=== PATIENT | female | born 1975 | race Hispanic/Latino ===

== ENCOUNTER 2019-02-24 15:26 | Emergency (ER) | payer BC ==
[~2019-02-24] VITALS: Ht 170.2 cm; Wt 68.0 kg
--- OUTSIDE RECORDS SUMMARY | 2019-02-24 15:29 | XMS REPORT ---
Author Author [facility] Address Unknown Phone Unavailable Care Team Providers Care Novelties Sales Representative Name Role Phone Rochelle Jacobson Unavailable Unavailable Problems This patient has no known problems. Allergies, Adverse Reactions, Alerts This patient has no known allergies or adverse reactions. Medications This patient has no known medications. Encounters Start Date/Time End Date/Time Encounter Type Admission Type Attending [facility] Care Facility Care Department Encounter ID 2019-02-23 15:31:00 2019-02-23 15:31:00 Emergency E [facility] [id number] 2018-10-23 14:34:00 2018-10-23 14:34:00 Outpatient Angel Jacobson [id number] 11:05:00 2017-10-17 11:05:00 Outpatient Angel Jacobson [id number] 10:53:00 2017-10-17 10:53:00 Outpatient Angel Jacobson [id number] 09:44:00 2016-10-13 09:44:00 Outpatient Angel Jacobson [id number]
[2019-02-24] MEDS ORDERED: SODIUM CHLORIDE 0.9% 1000ML 1,000 ML IV STA (15:46)
[2019-02-24] MEDS ORDERED: MORPHINE SULFATE INJ 4 MG/ML INJ 1ML IV STA (15:46)
[2019-02-24] MEDS ORDERED: KETOROLAC TROMETHAMINE 30 MG/ML VIAL IV ONE (16:00)
[2019-02-24] MEDS ORDERED: PIPER-TAZ 3.375 GM 50 ML IV ONE (16:00)
[2019-02-24] MEDS ORDERED: POTASSIUM CHLORIDE 20 MEQ TAB CR PO ONE (17:01)
[2019-02-24] MEDS ORDERED: SODIUM CHLORIDE 0.9% 1000ML 1,000 ML ONE (17:01)
[2019-02-24] MEDS ORDERED: KETOROLAC TROMETHAMINE 30 MG/ML VIAL ONE (17:01)
[2019-02-24] MEDS ORDERED: PIPER-TAZ 3.375 GM 50 ML ONE (17:01)
[2019-02-24] MEDS ORDERED: IOPAMIDOL 370 MG/ML 200 ML INFUS..BTL INJ ONE (17:07)
[2019-02-24] MEDS ORDERED: SODIUM CHLORIDE 0.9% 50ML 50 ML ONE (17:08)
--- NOTE | 2019-02-24 17:51 | Diagnostic Imaging Report ---
EXAM: CT Abdomen and Pelvis WITH intravenous contrast INDICATION: Abdominal pain COMPARISON: None. TECHNIQUE: Abdomen and pelvis were scanned utilizing a multidetector helical scanner from the lung base to the pubic symphysis after administration of IV contrast. Coronal and sagittal reformations were obtained. Routine protocol was performed. Scan was performed during portal venous phase. IV CONTRAST: 100mL of Isovue 370 ORAL CONTRAST: Water RADIATION DOSE: Total DLP: 537.0 mGy*cm Dose modulation, iterative reconstruction, and/or weight based adjustment of the mA/kV was utilized to reduce the radiation dose to as low as reasonably achievable. FINDINGS: LOWER THORAX: Normal. HEPATOBILIARY: No focal hepatic lesions. No biliary ductal dilatation. The gallbladder appears unremarkable. SPLEEN: No splenomegaly. PANCREAS: No focal masses or ductal dilatation. ADRENALS: No adrenal nodules. KIDNEYS/URETERS: No hydronephrosis or renal calculi. Multiple predominantly peripheral areas of nonenhancement of the upper and mid pole of the right kidney. Mild associated perinephric fat stranding. PELVIC ORGANS/BLADDER: Unremarkable. PERITONEUM / RETROPERITONEUM: Small amount of free fluid in the pelvis. LYMPH NODES: No lymphadenopathy. VESSELS: Unremarkable. GI TRACT: No abnormal bowel wall thickening. No bowel obstruction. The appendix is not well visualized but there are no inflammatory changes in the right lower quadrant to suggest acute appendicitis. BONES AND SOFT TISSUES: No acute osseous injury. No suspicious lytic or blastic lesions. IMPRESSION: Multiple predominantly peripheral areas of nonenhancement of the upper and mid pole of the right kidney with mild associated perinephric fat stranding. This may represent pyelonephritis or less likely areas of renal infarct. No hydronephrosis or renal calculi. Signed by: Pita De La Garza MD on 02/24/2019 5:48 PM
[2019-02-24] MEDS ORDERED: MORPHINE SULFATE INJ 4 MG/ML INJ 1ML ONE (18:18)
--- NOTE | 2019-02-24 18:44 | NUR ---
PT TO BE TRANSFERED FOR HIGHER LEVEL OF CARE, PT AWARE OF POC, PT VOICES NO COMPLAINTS AT THIS TIME, VITAL SIGNS STABLE.
--- NOTE | 2019-02-24 18:52 | NUR ---
REPORT TO DANIEL GRULLON
== END 2019-02-24 20:43 | disposition other institution (70) ==
LOC: FSED 15:26
DX: R50.9 Fever, unspecified (principal); R30.0 Dysuria; R10.2 Pelvic and perineal pain; R11.0 Nausea; N10 Acute pyelonephritis
CPT/HCPCS: 74177; 80053; 81003; 81025; 85025; 87086; 99284; J1885; J2270; J2543; J7030; Q9967

== ENCOUNTER → 2019-04-08 | Outpatient (CLI) | payer BC ==
--- NOTE | 2019-04-08 15:32 | Diagnostic Imaging Report ---
Exam: Pelvic ultrasound. History: Pelvic pain Comparison: CT abdomen and pelvis of 02/24/2019 Findings: Transabdominal and endovaginal sonographic evaluation of the pelvis. The uterus is anteverted in position, measuring 7.9 x 3.8 x 5.4cm. No uterine masses identified. Endometrial stripe thickness is 4 mm. The right ovary measures 3.7 x 3.2 x 3.1 cm and appears unremarkable. The left ovary measures 3.3 x 1.4 x 2.6 cm and appears unremarkable. No free fluid in the pelvis. Impression: Unremarkable pelvic ultrasound. Signed by: Pita De La Garza MD on 04/08/2019 3:28 PM
== END ==
LOC: US 13:38
PROVIDERS: ATTEND Internal Medicine
DX: R10.2 Pelvic and perineal pain (principal); N92.1 Excessive and frequent menstruation with irregular cycle
CPT/HCPCS: 76830; 76856